=== PATIENT | female | born 1995 | race Caucasian/White ===

== ENCOUNTER 2019-05-12 19:36 | Emergency (ER) | payer BC ==
[~2019-05-12] VITALS: Ht 170.2 cm; Wt 59.1 kg
[2019-05-12 19:39] VITALS: BP 121/70; TEMP 97.6
[2019-05-12 21:06] VITALS: PULSE 74
== END 2019-05-12 21:07 | disposition home or self-care (01) ==
LOC: COL.ER 19:36
DX: S16.1XXA Strain of muscle, fascia and tendon at neck level, initial encounter (principal); X50.0XXA Overexertion from strenuous movement or load, initial encounter
CPT/HCPCS: J1885